=== PATIENT | male | born 1960 | race Two or more races ===

== ENCOUNTER 2021-09-02 17:25 | Inpatient (IN) | payer OTHER ==
[~2021-09-02] VITALS: Ht 182.9 cm; Wt 79.4 kg
--- NOTE | 2021-09-02 19:30 | NUR ---
[id number] FOR DIARRHEA, PT'S BEEN DRINKING ALCOHOL LAST NIGHT PER EMS. - NASUEA/VOMITTING PRESENT. BREATHING IS EVEN AND UNLABORED AND ALL V/S STABLE.
--- NOTE | 2021-09-02 21:11 | NUR ---
KEVEN GOMEZ AT PT'S BEDSIDE
[2021-09-02 22:24] LABS: BASOPHILS % (AUTO) 0.2 % (0.0-2.0); EOSINOPHILS % (AUTO) 0.1 % (0.0-6.0); HEMATOCRIT 43 % (39-51); HEMOGLOBIN 14.7 g/dL (13.5-17.5); LYMPHOCYTES # (AUTO) 0.6 K/uL (0.8-4.8); LYMPHOCYTES % (AUTO) 7.9 % (20.0-44.0); MEAN CORPUSCULAR HGB CONC 34 g/dl (31.0-36.0); MEAN CORPUSCULAR VOLUME 96 fL (80-96); MONOCYTES # (AUTO) 1.5 K/uL (0.1-1.30); MONOCYTES % (AUTO) 18.8 % (2.0-12.0); NEUTROPHILS # (AUTO) 5.9 K/uL (1.8-8.9); PLATELET COUNT (AUTO) 211 K/uL (150-450); RED BLOOD CELL COUNT(AUTO) 4.47 MIL/uL (4.5-6.0)
[2021-09-02 22:49] LABS: ALBUMIN 2.7 g/dL (3.4-5.0); CALCIUM, SERUM 8.8 mg/dL (8.5-10.1); CREATININE 1.3 mg/dL (0.6-1.3); TOTAL PROTEIN, SERUM 6.6 g/dL (6.4-8.2)
[2021-09-02 22:54] LABS: POTASSIUM 2.8 mmol/L (3.5-5.1)
--- NOTE | 2021-09-02 22:54 | NUR ---
K - 2.8; DR. CATHIE WELLER NOTIFIED
[2021-09-02] MEDS ORDERED: ONDANSETRON HCL/PF 4 MG/2 ML VIAL ONE (23:28)
[2021-09-02] MEDS ORDERED: HYDROMORPHONE 1 MG/1 ML DISP.SYRIN ONE (23:29)
[2021-09-02] MEDS ORDERED: VANCOMYCIN 1 GM VIAL ONE (23:29)
[2021-09-02] MEDS ORDERED: FLUCONAZOLE (100 MG) 100 MG TABLET ONE (23:29)
[2021-09-02] MEDS ORDERED: IV NS 0.9% 1,000 ML BAG IV ONE (23:30)
[2021-09-02] MEDS ORDERED: IV PREMIX D5 1/2NS + KCL 1,000 ML IV ONE (23:30)
[2021-09-02] MEDS ORDERED: POTASSIUM CL. PREMIX PERIPHER. 100 ML ONE (23:30)
[2021-09-02] MEDS ORDERED: VANCOMYCIN 1 GM in IV D5W 250 ML IV ONE (23:30)
[2021-09-02] MEDS ORDERED: HYDROMORPHONE 1 MG/1 ML DISP.SYRIN IV ONE (23:30)
[2021-09-02] MEDS ORDERED: FLUCONAZOLE (100 MG) 100 MG TABLET PO ONE (23:30)
[2021-09-02] MEDS ORDERED: ONDANSETRON HCL/PF - ER 4 MG/2 ML VIAL IV ONE (23:30)
--- NOTE | 2021-09-03 00:30 | NUR ---
PATRICIA BARTH SPOKE WITH MERCEDES PROJECT CONSTRUCTION MANAGER AND DR. SAAVEDRA. ORDERED US. AND WILL CONTACT ONCE RESULT RECEIVED.
--- NOTE | 2021-09-03 06:57 | NUR ---
CALLED BACK DR. SMALLWOOD BUT NO ANSWER PER ER MD. CALLED STAVE GRADER TO ASK FOR ONCOMING MD.
--- NOTE | 2021-09-03 07:14 | NUR ---
SPOKE WITH JAMIA MULTIPLE CUT OFF SAW OPERATOR REGARDING ULTRASOUND RESULT. RESULT WILL BE RELAYED BY MULTIPLE CUT OFF SAW OPERATOR AND WILL CALL BACK FOR TRANSFER.
[2021-09-03 08:17] LABS: BAND % (MANUAL) 2 % (0.0-5.0); EOSINOPHILS % (MANUAL) 1 % (0-4); LYMPHOCYTES % (MANUAL) 12 % (16-48); MONOCYTES % (MANUAL) 14 % (0-11.0); NEUTROPHILS % (MANUAL) 71 (42-76)
--- NOTE | 2021-09-03 08:29 | NUR ---
PER GABRIELA ADMITTING PATIENT IS STAYING HERE BEC NO BEDS AVAILABLE IN [facility]
--- NOTE | 2021-09-03 10:32 | NUR ---
CALLED NURSING SUP REGARDING PT BED
[2021-09-03] MEDS ORDERED: Z GUARD REMEDY 4 OZ OINT TP PRN (11:00)
[2021-09-03] MEDS ORDERED: ONDANSETRON HCL/PF 4 MG/2 ML VIAL IVP PRN (11:00)
[2021-09-03] MEDS: PANTOPRAZOLE 40 MG VIAL IV SCH (12:00)
[2021-09-03] MEDS ORDERED: PANTOPRAZOLE 40 MG VIAL ONE (12:23)
[2021-09-03] MEDS: IV NS 0.9% 1,000 ML IV PRN ×2 (12:26→23:40)
[2021-09-03] MEDS: Thiamine 100 MG in IV D5W 50 ML IV SCH (13:00)
[2021-09-03] MEDS ORDERED: ENOXAPARIN SODIUM 40 MG/0.4 ML DISP.SYRIN SQ ONE (13:06)
[2021-09-03] MEDS: ENOXAPARIN SODIUM 40 MG/0.4 ML DISP.SYRIN SQ SCH (13:07)
[2021-09-03 13:36] LABS: CALCIUM, SERUM 8.3 mg/dL (8.5-10.1)
[2021-09-03 13:41] LABS: POTASSIUM 2.8 mmol/L (3.5-5.1)
--- NOTE | 2021-09-03 15:58 | NUR ---
covid antigen swab done and sent to the lab
[2021-09-03] MEDS ORDERED: POTASSIUM CL. PREMIX PERIPHER. 50 ML ONE ×3 (16:04→18:47)
[2021-09-03] MEDS: POTASSIUM CL. PREMIX PERIPHER. 50 ML IV SCH ×6 (16:05→23:34)
--- NOTE | 2021-09-03 18:45 | NUR ---
ROOM 320-2
[2021-09-03 18:58] LABS: CALCIUM, SERUM 8.1 mg/dL (8.5-10.1)
[2021-09-03 19:02] LABS: POTASSIUM 2.8 mmol/L (3.5-5.1)
--- NOTE | 2021-09-03 19:25 | NUR ---
REPORT GIVEN TO NURSE ELIZABETH FOR YAA
--- NOTE | 2021-09-03 19:38 | NUR ---
THE PATIENT IS TRANSFERED TO ROOM 320 IN STABLE CONDITION AND PER POLICY.
[2021-09-03 20:00] VITALS: BP 139/86
[2021-09-03 20:30] VITALS: BP 139/86
--- NOTE | 2021-09-03 20:30 | NUR ---
MS PRESS TENDER NOTES: RECEIVED PATIENT FORM ER VIA [place], PLACE AT RM 320, NO COMPLAIN OF PAIN AND DISCOMFORT AT THIS TIME, ON ROOM AIR , NO SOB WAS OBSERVED, PATIENT IS A/O X4 CUBAN SPEAKING, HOMELESS, ABLE TO EXPRESS NEEDS, WITH IV LINE AT RIGHT HAND #20 WITH ONGOING 0.9NSS@150ML PER HOUR INFUSING WELL, SKIN ASSESSMENT DONE AND RECORDED, V/S REMAINS STABLE, INVENTORY DONE , PATIENT REMAINS NPO, KEPT CLEAN AND DRY ALL NEEDS MET, WILL CONTINUE TO MONITOR,
[2021-09-04 06:32] LABS: BASOPHILS % (AUTO) 0.1 % (0.0-2.0); EOSINOPHILS % (AUTO) 0.7 % (0.0-6.0); HEMATOCRIT 40 % (39-51); HEMOGLOBIN 13.6 g/dL (13.5-17.5); LYMPHOCYTES # (AUTO) 0.7 K/uL (0.8-4.8); LYMPHOCYTES % (AUTO) 9.7 % (20.0-44.0); MEAN CORPUSCULAR HGB CONC 34 g/dl (31.0-36.0); MEAN CORPUSCULAR VOLUME 98 fL (80-96); MONOCYTES # (AUTO) 1.2 K/uL (0.1-1.30); MONOCYTES % (AUTO) 17.3 % (2.0-12.0); NEUTROPHILS # (AUTO) 5.1 K/uL (1.8-8.9); NEUTROPHILS % (AUTO) 72.2 % (43.0-81.0); PLATELET COUNT (AUTO) 207 K/uL (150-450); RED BLOOD CELL COUNT(AUTO) 4.08 MIL/uL (4.5-6.0); WHITE BLOOD COUNT (AUTO) 7.1 K/uL (4.3-11.0)
--- NOTE | 2021-09-04 07:20 | NUR ---
MS RN OPENING NOTES RECEIVED PATIENT ON BED AWAKE ALERT AND ORIENTED X 4. ON ROOM AIR WITH EQUAL AND UNLABORED BREATHING, NO SOB NOTED. NO SIGNS AND SYMPTOMS OR COMPLAINTS OF PAIN OR DISCOMFORT AT THIS TIME. WITH RIGHT HAND IV ACCESS G20 WITH IVF NS RUNNING AT 150ML/HR. SAFETY MEASURES IN PLACE. CALL LIGHT WITHIN REACH. BED ON LOWEST, LOCKED POSITION, SIDE RAILS UP X2. WILL CONTINUE TO MONITOR PATIENT.
--- NOTE | 2021-09-04 07:50 | NUR ---
RN CLOSING NOTES: PATIENT SLEEP IN ED COMFORTABLY, BED IN LOW POSITION, CALLLIGHTS WITHIN REACH, NO COMPLAIN OF PAIN AND DISCOMFORT AT THIS TIME, WITH IV LINE AT RIGHT WRIST #20 WITH ONGOING 0.9NSS@150 ML PER HOUR INFUSING WELL, PATIENT ON NPO, KEPT CLEAN AND DRY, ALL NEEDS MET ENDORSE TO INCOMING SHIFT.
[2021-09-04 07:56] LABS: CALCIUM, SERUM 9.6 mg/dL (8.5-10.1); CREATININE 0.8 mg/dL (0.6-1.3); MAGNESIUM 2.1 mg/dL (1.8-2.4); PHOSPHORUS 1.5 mg/dL (2.5-4.9)
[2021-09-04 08:00] VITALS: BP 149/88
[2021-09-04 08:19] LABS: POTASSIUM 2.8 mmol/L (3.5-5.1)
--- NOTE | 2021-09-04 09:00 | NUR ---
MS RN NOTE PATIENT SEEN BY DR. EARLY. WILL CONTINUE TO MONITOR PATIENT.
[2021-09-04] MEDS: PANTOPRAZOLE 40 MG VIAL IV SCH (09:26)
[2021-09-04] MEDS ORDERED: POTASSIUM CHLORIDE 20 MEQ POWDER PACKET PO ONE (09:30)
[2021-09-04] MEDS ORDERED: NEUTRA PHOS 1 POWD.PACKET PO ONE (09:30)
[2021-09-04] MEDS: IV NS 0.9% 1,000 ML IV PRN ×2 (09:34→18:27)
[2021-09-04] MEDS: ENOXAPARIN SODIUM 40 MG/0.4 ML DISP.SYRIN SQ SCH (09:37)
[2021-09-04] MEDS: POTASSIUM CL. PREMIX PERIPHER. 50 ML IV SCH ×4 (10:03→13:54)
[2021-09-04] MEDS: Thiamine 100 MG in IV D5W 50 ML IV SCH (15:04)
[2021-09-04 16:00] VITALS: BP 146/92
--- NOTE | 2021-09-04 19:26 | NUR ---
MS RN CLOSING NOTES PATIENT ON BED AWAKE ALERT AND ORIENTED X 4. ON ROOM AIR WITH EQUAL AND UNLABORED BREATHING, NO SOB NOTED. NO SIGNS AND SYMPTOMS OR COMPLAINTS OF PAIN OR DISCOMFORT AT THIS TIME. WITH RIGHT HAND IV ACCESS G20 WITH IVF NS RUNNING AT 150ML/HR. SAFETY MEASURES IN PLACE. CALL LIGHT WITHIN REACH. BED ON LOWEST, LOCKED POSITION, SIDE RAILS UP X2. WILL ENDORSE PATIENT FOR CONTINUITY OF CARE.
--- NOTE | 2021-09-04 19:45 | NUR ---
MS RN OPENING NOTES RECEIVED PATIENT LAYING AWAKE IN BED. A/OX4. PATIENT WITH REGULAR AND UNLABORED BREATHING ON ROOM AIR TOLERATED WELL. NO SIGNS AND SYMPTOMS OF DISTRESS NOTED AT THIS TIME. NO COMPLAINS OF PAIN OR DISCOMFORT AT THIS TIME. IV ACCESS R HAND G #20 SL. IV ACCESS PATENT AND INTACT. SAFETY PRECAUTIONS ENFORCED WITH BED LOCKED AND AT LOWEST POSITION. SIDERAILS UP X2. CALL LIGHT WITHIN REACH AT ALL TIMES. WILL CONTINUE TO MONITOR PATIENT.
[2021-09-04 20:00] VITALS: BP 142/87
--- NOTE | 2021-09-05 07:30 | NUR ---
RN OPENING NOTES RECEIVED PATIENT LAYING AWAKE IN BED. A/OX4. PATIENT WITH REGULAR AND UNLABORED BREATHING ON ROOM AIR TOLERATED WELL. NO SIGNS AND SYMPTOMS OF DISTRESS NOTED AT THIS TIME. NO COMPLAINS OF PAIN OR DISCOMFORT AT THIS TIME. IV ACCESS R HAND G #20 SL. IV ACCESS PATENT AND INTACT. PATIENT HAD MULTIPLE BOWEL MOVEMENTS. SAFETY PRECAUTIONS ENFORCED WITH BED LOCKED AND AT LOWEST POSITION. SIDERAILS UP X2. CALL LIGHT WITHIN REACH AT ALL TIMES. WILL CONTINUE TO MONITOR PATIENT.
[2021-09-05 07:54] LABS: CALCIUM, SERUM 7.9 mg/dL (8.5-10.1); CREATININE 0.9 mg/dL (0.6-1.3)
--- NOTE | 2021-09-05 08:07 | NUR ---
MS RN CLOSING NOTES RECEIVED PATIENT LAYING AWAKE IN BED. A/OX4. PATIENT WITH REGULAR AND UNLABORED BREATHING ON ROOM AIR TOLERATED WELL. NO SIGNS AND SYMPTOMS OF DISTRESS NOTED AT THIS TIME. NO COMPLAINS OF PAIN OR DISCOMFORT AT THIS TIME. IV ACCESS R HAND G #20 SL. IV ACCESS PATENT AND INTACT. SAFETY PRECAUTIONS ENFORCED WITH BED LOCKED AND AT LOWEST POSITION. SIDERAILS UP X2. CALL LIGHT WITHIN REACH AT ALL TIMES. WILL ENDORSE CONTINUITY OF CARE TO DAY SHIFT NURSE.
[2021-09-05 08:08] LABS: POTASSIUM 2.8 mmol/L (3.5-5.1)
[2021-09-05 08:39] VITALS: BP 150/91
[2021-09-05] MEDS: PANTOPRAZOLE 40 MG VIAL IV SCH (09:08)
[2021-09-05] MEDS: ENOXAPARIN SODIUM 40 MG/0.4 ML DISP.SYRIN SQ SCH (09:09)
[2021-09-05] MEDS: IV NS 0.9% 1,000 ML IV PRN (10:18)
--- NOTE | 2021-09-05 10:21 | NUR ---
WOUND CARE CONSULT: PT PRESENTS WITH RT FOOT DISCOLORATION AND SEVERE REDNESS/RASH TO GROIN FOLDS, PERINEUM, BUTTOCKS AND THIGHS, PRESENT ON ADMISSION. RECOMMENDATIONS MADE FOR SKIN PROTECTION AND CARE. DISCUSSED WITH NURSING STAFF. PT TO BE PLACED ON VALARIE ISOFLEX LOW AIRLOSS BED. PT IS INCONTINENT OF LOOSE STOOL. MD/DNP IN AGREEMENT WITH PLAN OF CARE.
[2021-09-05] MEDS ORDERED: POTASSIUM CHLORIDE 20 MEQ POWDER PACKET PO ONE ×2 (10:30→14:00)
[2021-09-05] MEDS: POTASSIUM CL. PREMIX PERIPHER. 50 ML IV SCH ×3 (11:33→13:36)
--- NOTE | 2021-09-05 13:11 | NUR ---
"SS Consult: SS consult for homelessness and ETOH. Pt. Is a 61-year-old male. Pt. demonstrates adequate insight to the reason for hospitalization. Per pt., he was brought to hospital by ambulance due to heavy drinking. Pt. was oriented x3, alert, and cooperative. During interview, pt. was capable of following directions, made appropriate eye-contact, and appeared unkempt. Pt.s speech was at a normal rate. Pt.s mood was elevated. SW explored pt.s hx of mental health and substance abuse. Per pt., he has been drinking for two months straight. Last Sunday was the last day he had stopped drinking [09/02]. Pt. reported no hx of mental health, suicidal or homicidal ideation. Pt. denies auditory hallucinations, visual hallucinations, paranoia, or delusions. SW explored pt.s living situation. Per pt., he is currently homeless. He got kicked out of his wifes house two months ago and that was when the drinking started. Pt. stated that he does not have a problem and does not need resources for drinking. Pt. stated that he does not know where he is going to go once discharged. Per pt., he is still deciding on where he is going to go. SW provided pt. with care home resources. Pt. signed homeless waiver and is placed in chart. Plan: SW provided available homeless resources and pt. accepted. Pt. rejected addiction resources at this time. Resources Provided: Winter Shelters: SPA 2 | [facility] Address: Confidential (call for location ) Population Served: [place] # of Beds: 57 SPA 4 | [facility] Provider: Home at Last Address: [address] [place] [address], [address] # of Beds: 49 Population Served: [facility] 6 | [facility] Provider: Home at Last Address: [address] [place] [address], [address] # of Beds: 49 Population Served: Ryand Gen Shetty [facility] Provider: Dilan Shetty MEArmida Address: [address] [place] [address] # of Beds: 20 Population Served: Women [facility] Facility Provider: Home at Last Address: [address] [facility] [address] # of Beds: 30 Population Served: Women SPA 8 | [facility] Provider: [facility] Address: [address] [facility] [address] # of Beds: 65 Population Served: [facility] Year-round shelters: [facility] [place] [address] [place] [address] ; [facility] [place] [address] [place] [address]; [place] [facility] [id number] [facility] [address] Winter Shelters: Larrytutu Muhammad [place] Provider: Volunteers michelle [place] Address: [address], [address] # of Beds: 47 Population Served: [facility] 6 | [facility] Norma Tejada [place] Provider: Home at Last Address: [address], [address] # of Beds: 66 Population Served: [facility] [place] Provider: First to Serve Address: [address] [facility], [address] # of Beds: 56 Population Served: [facility] [place] Provider: SS/[facility]. [facility] Address: [address] [facility], [address] # of Beds: 49 Population Served: [facility] 8 | [facility] Provider: First to Serve Address: [address], [address] # of Beds: 37 Population Served: [facility] Hygiene: [facility]: [address] [address] ; [facility] [address] [facility] [address] [place] ; [facility] [address] . Food Resources: [place] [facility] at [facility] [address]. [place]; Meet Each Need with Dignity ([facility]) [address] [facility] [facility] preble; [facility] [address] [facility]; [facility] [address] [place]. Mental Health resources provided: [facility] [address] [place], [place] [address] ; [place] [facility] [address] [facility] [address], [place], [place] [phone] ; [facility] [address] [address], [place] [phone] ; [facility] [address] [place], [place] [address] Healthcare Clinics: [facility] [address] [facility], [address] [place]. [place] ; [facility] [address] [facility] [address] [place] [address]; [facility] Health Trade [address] [facility]. [place] [phone] Counseling--Outpatient [facility] [address] [facility], [address] [place], [place] [address] (Specializes in in-depth psychotherapy for emotional distress: anxiety, depression, interpersonal conflicts, life transitions, childhood abuse) [facility] [address] [place], [place] [phone] (Assist with solving problem marital difficulties, separation & divorce, aging parents, & grief, chronic & terminal illness) [facility] [address] [place] [address] (Deal with loss & grief, anxiety, marital difficulties) Homebound/Mental Health Services [address] [facility], [address] [place], [place] [address] (Provide in-home mental services to people who are incapable of leaving their homes) [facility] for Needs of the Elderly Senior Service/Resource Center [address] [place] [address] [facility] [address] [place] [address] PSYCHIATRIC OUTPATIENT SERVICES [facility] Partial Hospitalization and Intensive Outpatient Program (Managed Care and Rodriguez Only)[address] [facility] [phone] [facility] Partial Hospitalization and Outpatient [id number] [place], [place] [phone] [facility] Mental Health Trade [id number] [facility]. [address] [place], [place] [phone] [facility] Partial Hospitalization and Outpatient [id number] [facility] Care[facility], [phone] Substance Abuse resources provided included: [facility] Substance Abuse Self-Helpline ([facility]) ; [facility]LP [address] [facility]. [place] [address] ; [facility] [address] [facility] [address] ; [facility] [address] [facility] [address] ; [facility] [address] [facility] [phone] ; [facility] Treatment [facility] 4940 [facility] [address] ; [facility] [place] [address] [facility] [phone] ; [facility] Substance Abuse Helpline([facility])-[facility] ; [facility] ; [facility]; [facility] [place]; [facility] [place]; [facility] Peewee Naresh; [facility]; [place]; [facility] [place]; [facility], [facility]. Luiz Jc; Alcoholics Anonymous -SFV; Alissa ; Marijuana Anonymous -SFV; Narcotics Anonymous www.na.org;"
[2021-09-05] MEDS: THIAMINE HCL 100 MG TABLET PO SCH (13:34)
[2021-09-05 16:04] VITALS: BP 139/75
[2021-09-05] MEDS: CLOTRIMAZOLE/BETAMETASONE DIPROPIONATE 15 GM TUBE TP SCH (17:36)
--- NOTE | 2021-09-05 19:00 | NUR ---
RN CLOSING NOTES PATIENT LAYING AWAKE IN BED. A/OX4. PATIENT WITH REGULAR AND UNLABORED BREATHING ON ROOM AIR TOLERATED WELL. NO SIGNS AND SYMPTOMS OF DISTRESS NOTED AT THIS TIME. NO COMPLAINS OF PAIN OR DISCOMFORT AT THIS TIME. IV ACCESS R HAND G #20 SL. IV ACCESS PATENT AND INTACT.ALL DUE MEDS GIVEN ORDERED. POTASSIUM IV REPLACED. SAFETY PRECAUTIONS ENFORCED WITH BED LOCKED AND AT LOWEST POSITION. SIDERAILS UP X2. CALL LIGHT WITHIN REACH AT ALL TIMES. WILL ENDORSE FOR YAA.
--- NOTE | 2021-09-05 19:51 | NUR ---
RN OPENING NOTES RECEIVED PT IN BED, AWAKE. AOx4, ABLE TO MAKE NEEDS KNOWN. ON RA AND TOLERATING WELL. NO SOB NOTED. NO S/SX OF RESPIRATORY DISTRESS NOTED. IV ACCESS IN R HAND #20. IV IS INTACT, PATENT, AND FLUSHING WELL. SAFETY PRECAUTIONS IN PLACE: BED IN LOWEST, LOCKED POSITION, BRAKES ON, AND SIDERAILS UPx2. TABLE AND CALL LIGHT WITHIN REACH. WILL CONTINUE TO MONITOR.
--- NOTE | 2021-09-06 07:29 | NUR ---
RN CLOSING NOTES PT IN BED, AWAKE. AOx3-4, ABLE TO MAKE NEEDS KNOWN. ON RA AND TOLERATING WELL. NO SOB NOTED. NO S/SX OF RESPIRATORY DISTRESS NOTED. IV ACCESS IN R HAND #20. IV IS INTACT, PATENT, AND FLUSHING WELL. ALL NEEDS MET. PT KEPT CLEAN AND DRY. SAFETY PRECAUTIONS IN PLACE: BED IN LOWEST, LOCKED POSITION, BRAKES ON, AND SIDERAILS UPx2. TABLE AND CALL LIGHT WITHIN REACH. WILL ENDORSE TO ONCOMING SHIFT FOR YAA.
[2021-09-06 08:00] VITALS: BP 137/86
--- NOTE | 2021-09-06 08:00 | NUR ---
m/s spot billing clerk: initial assessment received pt in bed awake, a/ox2 with confusion and disorientation to place and situation. reality orientation provided prn. gait unsteady. instructed to call for assistance. bed alarm on. will continue to monitor.
[2021-09-06 08:13] LABS: CALCIUM, SERUM 8.5 mg/dL (8.5-10.1); CREATININE 0.9 mg/dL (0.6-1.3); POTASSIUM 3.1 mmol/L (3.5-5.1)
[2021-09-06] MEDS: ENOXAPARIN SODIUM 40 MG/0.4 ML DISP.SYRIN SQ SCH (08:41)
[2021-09-06] MEDS: PANTOPRAZOLE 40 MG TABLET.DR PO SCH (08:41)
[2021-09-06] MEDS: CLOTRIMAZOLE/BETAMETASONE DIPROPIONATE 15 GM TUBE TP SCH ×2 (08:45→17:00)
[2021-09-06] MEDS ORDERED: POTASSIUM CL. PREMIX PERIPHER. 50 ML IV SCH (10:00)
[2021-09-06] MEDS ORDERED: POTASSIUM CHLORIDE 20 MEQ TAB.PRT.SR PO ONE (11:30)
[2021-09-06] MEDS: THIAMINE HCL 100 MG TABLET PO SCH (12:07)
[2021-09-06 16:00] VITALS: BP 150/100
--- NOTE | 2021-09-06 17:00 | NUR ---
m/s household coordinator: notes dinner served. no distress noted. hob elevated. instructed to call for assistance. will continue to monitor.
--- NOTE | 2021-09-06 19:00 | NUR ---
m/s grooving lathe tender: notes report given to orquidea (rn) for continuity of care.
--- NOTE | 2021-09-06 19:50 | NUR ---
RN OPENING NOTES RECEIVED PT IN BED, ASLEEP, AWAKENS TO VERBAL STIMULI. AOx2-3, ABLE TO MAKE NEEDS KNOWN. ON RA AND TOLERATING WELL. NO SOB NOTED. NO S/SX OF RESPIRATORY DISTRESS NOTED. IV ACCESS IN R HAND #20. IV IS INTACT, PATENT, AND FLUSHING WELL. SAFETY PRECAUTIONS IN PLACE: BED IN LOWEST, LOCKED POSITION, BRAKES ON, AND SIDERAILS UPx2. TABLE AND CALL LIGHT WITHIN REACH. WILL CONTINUE TO MONITOR.
[2021-09-06 21:12] VITALS: BP 137/89
[2021-09-06] MEDS: LORAZEPAM INJ 2 MG/ML VIAL IV PRN (21:34)
--- NOTE | 2021-09-06 21:34 | NUR ---
ADMINISTERED ATIVAN FOR WITHDRAWALS. VS WNL. WILL CONTINUE TO MONITOR.
[2021-09-06] MEDS: IV LR 1000 ML 1,000 ML IV SCH (22:40)
--- NOTE | 2021-09-06 23:55 | NUR ---
PATIENT REFUSES TO STAY IN BED. TRYING TO TURN ON BED ALARM BUT PATIENT BECOMES AGITATED. CHARGE NURSE AWARE. ALSO REQUESTED SITTER FOR PATIENT.
[2021-09-07] MEDS: LORAZEPAM INJ 2 MG/ML VIAL IV PRN ×3 (01:46→20:02)
--- NOTE | 2021-09-07 01:46 | NUR ---
ADMINISTERED ATIVAN FOR WITHDRAWALS. VS WNL. WILL CONTINUE TO MONITOR.
[2021-09-07] MEDS ORDERED: CHLORDIAZEPOXIDE HCL 25 MG CAPSULE ONE (04:11)
--- NOTE | 2021-09-07 04:21 | NUR ---
PATIENT HAVING WITHDRAWAL SYMPTOMS OF TREMORS, AGITATION, AND CONFUSION. CHARGE NURSE AWARE. CONTACTED DR. VIZCAINO AND DOCTOR ORDERED LIBRIUM 50 MG PO ONCE. WILL CONTINUE TO MONITOR.
[2021-09-07] MEDS ORDERED: CHLORDIAZEPOXIDE HCL 25 MG CAPSULE PO ONE (04:30)
--- NOTE | 2021-09-07 06:07 | NUR ---
ADMINISTERED ATIVAN FOR WITHDRAWALS. VS WNL. WILL CONTINUE TO MONITOR.
--- NOTE | 2021-09-07 07:07 | NUR ---
RN CLOSING NOTES RECEIVED PT IN BED, ASLEEP, AWAKENS TO VERBAL STIMULI. AOx2-3, WITH PERIODS OF CONFUSION. ON RA AND TOLERATING WELL. NO SOB NOTED. NO S/SX OF RESPIRATORY DISTRESS NOTED. IV ACCESS IN L HAND #20. IV IS INTACT, PATENT, AND FLUSHING WELL. ALL NEEDS MET. PT KEPT CLEAN AND DRY. TREATED WITHDRAWAL SYMTPOMS THROUGHOUT SHIFT. SAFETY PRECAUTIONS IN PLACE: BED IN LOWEST, LOCKED POSITION, BRAKES ON, AND SIDERAILS UPx2. TABLE AND CALL LIGHT WITHIN REACH. WILL ENDORSE TO ONCOMING SHIFT FOR YAA.
[2021-09-07 07:15] LABS: CALCIUM, SERUM 8.7 mg/dL (8.5-10.1); POTASSIUM 2.9 mmol/L (3.5-5.1)
[2021-09-07] MEDS: IV LR 1000 ML 1,000 ML IV SCH ×2 (08:09→18:14)
[2021-09-07 08:14] VITALS: BP 126/89
[2021-09-07] MEDS: PANTOPRAZOLE 40 MG TABLET.DR PO SCH (08:25)
[2021-09-07] MEDS: ENOXAPARIN SODIUM 40 MG/0.4 ML DISP.SYRIN SQ SCH (08:28)
[2021-09-07] MEDS: CLOTRIMAZOLE/BETAMETASONE DIPROPIONATE 15 GM TUBE TP SCH ×2 (08:31→16:11)
--- NOTE | 2021-09-07 09:21 | NUR ---
RN NOTES PATIENT SEEN BY PT TODAY BUT PATIENT IS SLEEPING AT THIS TIME; WILL COME BACK LATER FOR PT EXERCISES.
[2021-09-07] MEDS: POTASSIUM CHLORIDE 20 MEQ TAB.PRT.SR PO SCH ×3 (10:18→11:22)
--- NOTE | 2021-09-07 10:35 | NUR ---
RN NOTES PT AT BEDSIDE FOR EXERCISES
--- NOTE | 2021-09-07 12:00 | NUR ---
RN NOTES PATIENT NOTED W/ UNSTEADY GAIT; CHANGED LINEN IN BED AND ASSISTED W/ ADLS TOLERATED. NO SWALLOWING ISSUES NOTED AT THIS TIME. STILL NOTED W/ CONFUSION; [place], AWARE.
[2021-09-07] MEDS: THIAMINE HCL 100 MG TABLET PO SCH (12:07)
[2021-09-07] MEDS ORDERED: Potassium Chloride 40 MEQ in IV NS 0.9% 1,000 ML IV PRN (13:00)
[2021-09-07 16:00] VITALS: BP 114/75
--- NOTE | 2021-09-07 19:10 | NUR ---
MS RN NOTE: RECEIVED REPORT AT PATIENT'S BEDSIDE. PATIENT ASLEEP, EYES CLOSED, RR EVEN AND UNLABORED. EASILY AROUSED BY VOICE COMMAND, IN NAD AND VSS AT THIS TIME. BED IN LOW/LOCKED POSITION. SIDE RAILS UP X2. HOB IN SEMI-MANE'S POSITION. PATENT DEMONSTRATES ABILITY TO USE CALL LIGHT AND VERBALIZE NEEDS EFFECTIVELY. CALL LIGHT AND FREQUENTLY USED ITEMS WITHIN REACH.
--- NOTE | 2021-09-07 19:20 | NUR ---
RN NOTES PATIENT IN BED RESTING, ABLE TO BE AWAKENED. BREATHING EVEN AND UNLABORED, TOLERATING ROOM AIR. IV LINE INTACT AND PATENT; ASSISTED W/ ADLS NEEDED. ABLE TO UPGRADE DIET, TOLERATED BY PATIENT. SAFETY MEASURES MAINTAINED. ENDORSED TO CALL CENTER RECEPTIONIST RN FOR YAA.
[2021-09-07 20:00] VITALS: BP 119/67
--- NOTE | 2021-09-07 20:02 | NUR ---
RN NOTE: NOTIFIED PHARMACY AND CHARGE NURSE OF SCANNING ISSUES WITH ATIVAN IVP. TICKETING CLERK WITNESSED SCANNING ISSUE. ATIVAN 1MG ADMINISTERED TO PATIENT IVP FOR RESTLESSNESS.
[2021-09-08] MEDS: IV LR 1000 ML 1,000 ML IV SCH ×2 (03:23→13:50)
[2021-09-08] MEDS: LORAZEPAM INJ 2 MG/ML VIAL IV PRN ×2 (03:23→23:00)
[2021-09-08] MEDS: PANTOPRAZOLE 40 MG TABLET.DR PO SCH (06:37)
[2021-09-08 07:01] LABS: CALCIUM, SERUM 8.1 mg/dL (8.5-10.1); CREATININE 0.9 mg/dL (0.6-1.3); MAGNESIUM 1.8 mg/dL (1.8-2.4); POTASSIUM 3.2 mmol/L (3.5-5.1)
--- NOTE | 2021-09-08 07:32 | NUR ---
MS RN OPENING NOTES RECEIVED Pt RESTING IN BED A/O x2-3. Pt IS ON ROOM AIR AT THIS TIME AND IT TOLERATING WELL. NO COMPLAINTS OF PAIN MADE AND NO SIGNS OF DISTRESS NOTICED. SAFETY MEASURES ARE IN PLACE: BED IS LOCKED AND IN LOWEST POSITION, SIDE RAILS UP x3, BED SIDE TABLE AND CALL LIGHT ARE WITHIN REACH. WILL CONTINUE TO MONITOR THROUGHOUT THE SHIFT.
[2021-09-08 08:00] VITALS: BP 102/62
[2021-09-08] MEDS: ENOXAPARIN SODIUM 40 MG/0.4 ML DISP.SYRIN SQ SCH (08:38)
[2021-09-08] MEDS: CLOTRIMAZOLE/BETAMETASONE DIPROPIONATE 15 GM TUBE TP SCH ×2 (08:39→16:05)
[2021-09-08] MEDS: POTASSIUM CHLORIDE 20 MEQ TAB.PRT.SR PO SCH ×2 (09:24→10:25)
[2021-09-08] MEDS: THIAMINE HCL 100 MG TABLET PO SCH (13:49)
[2021-09-08 16:00] VITALS: BP 139/86
--- NOTE | 2021-09-08 18:57 | NUR ---
MS RN CLOSING NOTES Pt IS RESTING IN BED. A/Ox3 AND IS ON ROOM AIR TOLERATING WELL. NO RESPIRATORY DISTRESS NOTED AND NO COMPLAINTS OF PAIN MADE. Pt HAS IV ON L HAND AND IS PATENT AND INTACT. SAFETY MEASURES ARE IN PLACE: BED IS LOCKED AND IN LOWEST POSITION. SIDE RAILS UPx3. BED SIDE TABLE AND CALL LIGHT ARE WITHIN REACH. WILL ENDORSE TO ONCOMING SHIFT.
--- NOTE | 2021-09-08 19:00 | NUR ---
MS RN OPENING NOTE: RECEIVED REPORT AT PATIENT'S BEDSIDE. PATIENT LAYING IN BED WATCHING TV. COMMUNICATIVE. ALERT AND ORIENTED TO PERSON, PLACE AND TIME. NAD AND VSS AT THIS TIME. PATIENT EATING SOFT FOODS AND DRINKING PO AD [place] INDEPENDENTLY WITHOUT COMPLICATION. OBSERVED REPOSITIONING IN BED INDEPENDENTLY. BED IN LOW/LOCKED POSITION. SIDE RAILS UP X2. PATIENT DEMONSTRATES ABILITY TO USE CALL LIGHT AND VERBALIZE NEEDS EFFECTIVELY. CALL LIGHT AND FREQUENTLY USED ITEMS WITHIN REACH.
[2021-09-08 20:00] VITALS: BP 130/74
--- NOTE | 2021-09-08 23:11 | NUR ---
MS RN NOTE: L HAND NOTED TO BE SWOLLEN. CATHETER INSERTION SITE LEAKING WITH FLUID. IV INFILTRATED. LINE D/C'D CATHETER TIP INTACT. ARM ELEVATED WITH PILLOWS.
--- NOTE | 2021-09-09 01:30 | NUR ---
RN NOTE: IV TO R FA 22 GAUGE STARTED ON 2ND ATTEMPT
[2021-09-09] MEDS: LORAZEPAM INJ 2 MG/ML VIAL IV PRN (03:15)
--- NOTE | 2021-09-09 03:15 | NUR ---
MS RN NOTE: PATIENT C/O ANXIETY. ADMINISTERED ATIVAN 1MG IVP. SHORTLY AFTER ADMINISTRATION PATIENT NOTIFIED THIS NURSE THE IV CAME OUT TO R FA. CATHETER TIP NOTED TO BE INTACT.
--- NOTE | 2021-09-09 03:42 | NUR ---
MS RN NOTE: NOTIFIED HOSPITALIST OF INABILITY TO START NEW IV AFTER 3 UNSUCCESSFUL ATTEMPTS AND PATIENT'S PO STATUS (TOLERATING ORAL FOODS AND NUTRITION WITHOUT ISSUE). MD RESPONSE: "CONTINUE TO ENCOURAGE PO HYDRATION." NOTIFIED PATIENT. PATIENT VERBALIZES UNDERSTANDING.
--- NOTE | 2021-09-09 05:42 | NUR ---
MS RN CLOSING NOTE: PATIENT SLEPT WELL THROUGHOUT MAJORITY OF NIGHT. EASILY AROUSED TO VOICE COMMAND. ALERT AND ORIENTED X3. NAD AND VSS AT THIS TIME. PATIENT EATING SOFT FOODS AND DRINKING PO AD [place] INDEPENDENTLY WITHOUT COMPLICATION. OBSERVED REPOSITIONING IN BED INDEPENDENTLY. BED IN LOW/LOCKED POSITION. NO IV AT THIS TIME. MD AWARE. SIDE RAILS UP X2. PATIENT DEMONSTRATES ABILITY TO USE CALL LIGHT AND VERBALIZE NEEDS EFFECTIVELY. CALL LIGHT AND FREQUENTLY USED ITEMS WITHIN REACH.
--- NOTE | 2021-09-09 07:53 | NUR ---
RN OPENING NOTES PATIENT AWAKE IN BED RESTING, A/O X3. NO S/S OF PAIN NOTED AT THIS TIME. ON ROOM AIR, NO DISTRESS OR SHORTNESS OF BREATH NOTED. NO IV ACCESS AT THE MOMENT. FALL AND SAFETY MEASURES IN PLACE, BED ALARM ON, BED IN LOW AND LOCK POSITION, CALL LIGHT AND TABLE WITHIN EASY REACH, SIDE RAILS UP X2. WILL CONTINUE TO MONITOR.
[2021-09-09 08:00] VITALS: BP 136/76
[2021-09-09] MEDS: THIAMINE HCL 100 MG TABLET PO SCH (09:30)
[2021-09-09] MEDS: CLOTRIMAZOLE/BETAMETASONE DIPROPIONATE 15 GM TUBE TP SCH ×2 (09:30→16:33)
[2021-09-09] MEDS: ENOXAPARIN SODIUM 40 MG/0.4 ML DISP.SYRIN SQ SCH (09:32)
[2021-09-09] MEDS: PANTOPRAZOLE 40 MG TABLET.DR PO SCH (09:34)
[2021-09-09 10:47] LABS: POTASSIUM 3.6 mmol/L (3.5-5.1)
[2021-09-09 16:00] VITALS: BP 139/78
--- NOTE | 2021-09-09 18:54 | NUR ---
RN CLOSING NOTES PATIENT AWAKE IN BED RESTING, A/O X3. NO S/S OF PAIN NOTED AT THIS TIME. ON ROOM AIR, NO DISTRESS OR SHORTNESS OF BREATH NOTED. NO IV ACCESS AT THE MOMENT. FALL AND SAFETY MEASURES IN PLACE, BED ALARM ON, BED IN LOW AND LOCK POSITION, CALL LIGHT AND TABLE WITHIN EASY REACH, SIDE RAILS UP X2. WILL ENDORSE TO STUDENT SUPPORT ADVISOR.
[2021-09-09 20:00] VITALS: BP 152/77
[2021-09-09] MEDS: IV LR 1000 ML 1,000 ML IV SCH (20:30)
--- NOTE | 2021-09-09 20:30 | NUR ---
MS RN OPENING NOTES: RECEIVED PATIENT AWAKE IN BED, BED IN LOW POSITION, CALL LIGHTS WITHIN REACH, NO COMPLAIN OF PAIN AND DISCOMFORT AT THIS TIME, PATIENT IS A/O X3 WITH EPISODE OF CONFUSION,, NO COMPLAIN OF PAIN AND DISCOMFORT AT THIS TIME, ON ROOM AIR SATURATING WELL, NO IV LINE PATIENT OFFERED TO RE INSERT PATIENT REFUSED, PATIENT KEPT CLEAN AND DRY, ALL NEEDS MET WILL CONTINUE TO MONTIOR.
[2021-09-10] MEDS: IV LR 1000 ML 1,000 ML IV SCH ×3 (05:59→06:30)
--- NOTE | 2021-09-10 07:10 | NUR ---
RN CLOSING NOTES: PATIENT SLEEP IN BED COMFORTABLY, AROUSABLE TO VERBAL STIMULI, ON ROOM AIR SATURATING WELL, NO COMPLAIN OF PAIN AND DISCOMFORT AT THIS TIME, PATIENT IS A/OX3 ABLE TO MAKE NEEDS KNOWN, PATIENT KEPT CLEAN AND DRY ALL NEEDS MET ENDORSE TO INCOMING SHIFT.
--- NOTE | 2021-09-10 07:51 | NUR ---
MS RN OPENING NOTES: RECEIVED Pt AWAKE IN BED. Pt IS A/Ox3 AT THIS TIME. Pt IS ON ROOM AIR AND TOLERATING WELL NO COMPLAINTS OF PAIN MADE AND NO SIGNS OF DISTRESS NOTED. Pt HAS AN IV ON R FA 20g THAT IS PATENT AND INTACT. SAFETY MEASURES ARE IN PLACE: BED IS LOCKED AND IN LOWEST POSITION. SIDE RAILS UP x2, BED SIDE TABLE AND CALL LIGHT ARE WITHIN REACH. WILL CONTINUE TO MONITOR THROUGHOUT THE SHIFT.
[2021-09-10 08:00] VITALS: BP 148/83
[2021-09-10] MEDS: ENOXAPARIN SODIUM 40 MG/0.4 ML DISP.SYRIN SQ SCH (09:00)
[2021-09-10] MEDS: CLOTRIMAZOLE/BETAMETASONE DIPROPIONATE 15 GM TUBE TP SCH ×2 (09:39→16:17)
--- NOTE | 2021-09-10 09:42 | NUR ---
MS RN NOTES: LOVENOX Pt's IV WAS PULLED OUT AND Pt's IV SITE WAS BLEEDING, LOVENOX NOT GIVEN.
[2021-09-10] MEDS: PANTOPRAZOLE 40 MG TABLET.DR PO SCH (10:50)
[2021-09-10] MEDS: THIAMINE HCL 100 MG TABLET PO SCH (13:15)
[2021-09-10 16:00] VITALS: BP 138/80
--- NOTE | 2021-09-10 18:31 | NUR ---
MS RN CLOSING NOTES: Pt IS RESTING IN BED COMFORTABLY, A/Ox3 AT THIS TIME. Pt IS ON ROOM AIR AND SATURATING WELL, NO COMPLAINTS OF PAIN MADE AND NO SIGNS OF DISCOMFORT AT THIS TIME, Pt IS ABLE TO MAKE NEEDS KNOWN. Pt HAS NO IV ACCESS AND MD IS AWARE. SAFETY MEASURES ARE IN PLACE: BED IS LOCKED AND IN LOWEST POSITION. SIDE RAILS UP x2. BED SIDE TABLE AND CALL LIGHT WITHIN REACH. WILL ENDORSE TO ONCOMING SHIFT.
--- NOTE | 2021-09-10 19:15 | NUR ---
MS/RN NOTES PT AWAKE, A/OX3, ABLE TO MAKE NEEDS KNOWN. HE DENIES ANY PAIN AT THIS TIME. RESPIRATIONS EVEN/UNLABORED. ON ROOM AIR. NO IV ACCESS, PER MD OK TO HAVE NO IV. PT IN NO ACUTE DISTRESS. SAFETY MEASURES IN PLACE, BED IN LOWEST LOCKED POSITION, S/R UPX2, CALL LIGHT WITHIN REACH. WILL CONT TO MONITOR.
[2021-09-10 20:00] VITALS: BP 147/71
--- NOTE | 2021-09-11 06:48 | NUR ---
MS/RN NOTE Pt resting in bed, easily arousable to stimuli. Denies any pain/discomfort. No respiratory distress. Pt slept well during the night without any distress. All needs attended to. Safety measures maintained.
--- NOTE | 2021-09-11 07:35 | NUR ---
MS RN OPENING NOTES: RECEIVED Pt AWAKE IN BED. Pt IS A/Ox3 AT THIS TIME. Pt IS ON ROOM AIR AND TOLERATING WELL NO COMPLAINTS OF PAIN MADE AT THIS TIME AND NO SIGNS OF DISTRESS NOTED. SAFETY MEASURES ARE IN PLACE: BED IS LOCKED AND IN LOWEST POSITION. SIDE RAILS UP x2, BED SIDE TABLE AND CALL LIGHT ARE WITHIN REACH. WILL CONTINUE TO MONITOR THROUGHOUT THE SHIFT.
[2021-09-11 07:51] LABS: CALCIUM, SERUM 7.8 mg/dL (8.5-10.1); CREATININE 0.8 mg/dL (0.6-1.3); MAGNESIUM 1.7 mg/dL (1.8-2.4)
[2021-09-11 08:00] VITALS: BP 127/93
[2021-09-11 08:21] LABS: BASOPHILS # (AUTO) 0.1 K/uL (0.0-0.2); BASOPHILS % (AUTO) 0.9 % (0.0-2.0); EOSINOPHILS % (AUTO) 0.9 % (0.0-6.0); HEMATOCRIT 39 % (39-51); HEMOGLOBIN 13.1 g/dL (13.5-17.5); LYMPHOCYTES # (AUTO) 1.3 K/uL (0.8-4.8); LYMPHOCYTES % (AUTO) 11.5 % (20.0-44.0); MEAN CORPUSCULAR HGB CONC 34 g/dl (31.0-36.0); MEAN CORPUSCULAR VOLUME 98 fL (80-96); MONOCYTES % (AUTO) 8.7 % (2.0-12.0); NEUTROPHILS # (AUTO) 8.6 K/uL (1.8-8.9); PLATELET COUNT (AUTO) 675 K/uL (150-450); RED BLOOD CELL COUNT(AUTO) 4.02 MIL/uL (4.5-6.0); WHITE BLOOD COUNT (AUTO) 11.1 K/uL (4.3-11.0)
[2021-09-11] MEDS ORDERED: Magnesium 1GM/D5W 100ML PREMIX 100 ML IV SCH (09:00)
[2021-09-11] MEDS: ENOXAPARIN SODIUM 40 MG/0.4 ML DISP.SYRIN SQ SCH (09:12)
[2021-09-11] MEDS: PANTOPRAZOLE 40 MG TABLET.DR PO SCH (09:12)
[2021-09-11] MEDS: POTASSIUM CHLORIDE 20 MEQ TAB.PRT.SR PO SCH ×3 (09:12→12:25)
[2021-09-11] MEDS: CLOTRIMAZOLE/BETAMETASONE DIPROPIONATE 15 GM TUBE TP SCH ×2 (09:13→17:10)
[2021-09-11] MEDS ORDERED: MAGNESIUM OXIDE 400 MG TABLET PO ONE (12:00)
[2021-09-11] MEDS ORDERED: POTASSIUM CHLORIDE 20 MEQ TAB.PRT.SR PO ONE ×2 (12:24→13:10)
[2021-09-11] MEDS: THIAMINE HCL 100 MG TABLET PO SCH (13:11)
[2021-09-11 15:50] VITALS: BP 134/82
--- NOTE | 2021-09-11 19:30 | NUR ---
MS RN NOTES RECEIVED ON BED A/O X3,HOMELESS,BREATHING REGULAR,NOT IN ANY FORM OF DISTRESS,CONTINENT ON B/B,NO IV ACCESS,MD AWARE,ASSIST WITH ADL'S,FALL PRECAUTION OBSERVED,BED ALARM,BED ON LOWEST POSITION AND LOCKED,CALL LIGHT IN REACH,NEEDS ANTICIPATED.
[2021-09-11 20:00] VITALS: BP 136/83
[2021-09-11 20:38] VITALS: BP 136/83
[2021-09-12 06:44] LABS: CALCIUM, SERUM 8.2 mg/dL (8.5-10.1); CREATININE 0.9 mg/dL (0.6-1.3); MAGNESIUM 1.7 mg/dL (1.8-2.4); POTASSIUM 3.7 mmol/L (3.5-5.1)
--- NOTE | 2021-09-12 06:44 | NUR ---
MS RN NOTES NO SIGNIFICANT CHANGE IN STATUS,EASILY GETS AGITATED,POSSIBLE D/C TO SNF,AWAITING PLACEMENT.CALL LIGHT IN REACH,NEEDS ATTENDED.
[2021-09-12 07:22] LABS: BASOPHILS # (AUTO) 0.2 K/uL (0.0-0.2); BASOPHILS % (AUTO) 2.3 % (0.0-2.0); EOSINOPHILS % (AUTO) 1.5 % (0.0-6.0); HEMATOCRIT 39 % (39-51); HEMOGLOBIN 13.2 g/dL (13.5-17.5); LYMPHOCYTES # (AUTO) 1.4 K/uL (0.8-4.8); LYMPHOCYTES % (AUTO) 14.8 % (20.0-44.0); MEAN CORPUSCULAR HGB CONC 34 g/dl (31.0-36.0); MEAN CORPUSCULAR VOLUME 98 fL (80-96); MONOCYTES % (AUTO) 10.8 % (2.0-12.0); NEUTROPHILS # (AUTO) 6.7 K/uL (1.8-8.9); NEUTROPHILS % (AUTO) 70.6 % (43.0-81.0); PLATELET COUNT (AUTO) 700 K/uL (150-450); RED BLOOD CELL COUNT(AUTO) 3.95 MIL/uL (4.5-6.0); WHITE BLOOD COUNT (AUTO) 9.5 K/uL (4.3-11.0)
--- NOTE | 2021-09-12 07:25 | NUR ---
MS RN OPENING NOTES: RECEIVED Pt AWAKE IN BED. Pt IS A/Ox3 AT THIS TIME. Pt IS ON ROOM AIR AND TOLERATING WELL NO COMPLAINTS OF PAIN MADE AND NO SIGNS OF DISTRESS NOTED. Pt HAS NO IV ACCESS AT THIS TIME. MD AWARE. SAFETY MEASURES ARE IN PLACE: BED IS LOCKED AND IN LOWEST POSITION. SIDE RAILS UP x2, BED SIDE TABLE AND CALL LIGHT ARE WITHIN REACH. WILL CONTINUE TO MONITOR
[2021-09-12] MEDS: PANTOPRAZOLE 40 MG TABLET.DR PO SCH (08:00)
[2021-09-12] MEDS: CLOTRIMAZOLE/BETAMETASONE DIPROPIONATE 15 GM TUBE TP SCH ×2 (08:04→16:00)
[2021-09-12] MEDS: ENOXAPARIN SODIUM 40 MG/0.4 ML DISP.SYRIN SQ SCH (08:04)
[2021-09-12 08:16] VITALS: BP 138/91
[2021-09-12] MEDS ORDERED: MAGNESIUM OXIDE 400 MG TABLET PO ONE (10:00)
[2021-09-12] MEDS: FOLIC ACID 1 MG TABLET PO SCH (10:14)
[2021-09-12] MEDS: THIAMINE HCL 100 MG TABLET PO SCH (12:08)
[2021-09-12 16:35] VITALS: BP 142/87
--- NOTE | 2021-09-12 19:50 | NUR ---
MSRN FULLY AWAKE, WANTED TO USE RESTROOM, REFUSED TO BE ASSISTED. BRP WITH STANDBY. HFR. COOPERATIVE MOST OF THE TIME. NO OTHER NEEDS MADE. SAFETY PRECAUTIONS EMPHASIZED, APPEARS TO UNDERSTAND. REMINDED TO CALL STAFF FOR ANY ASSISTANCE OR DISCOMFORTS. CLOSELY WATCHED,
[2021-09-12 20:48] VITALS: BP 135/74
--- NOTE | 2021-09-13 00:37 | NUR ---
MSRN ASLEEP, CLOSELY WATCHED.
--- NOTE | 2021-09-13 06:25 | NUR ---
MSRN REMAINS STABLE. NO NEEDS FOR NOW.
[2021-09-13 06:38] LABS: BASOPHILS # (AUTO) 0.2 K/uL (0.0-0.2); BASOPHILS % (AUTO) 2.5 % (0.0-2.0); EOSINOPHILS % (AUTO) 1.6 % (0.0-6.0); HEMATOCRIT 39 % (39-51); HEMOGLOBIN 13.2 g/dL (13.5-17.5); LYMPHOCYTES # (AUTO) 1.5 K/uL (0.8-4.8); LYMPHOCYTES % (AUTO) 17.9 % (20.0-44.0); MEAN CORPUSCULAR HGB CONC 34 g/dl (31.0-36.0); MEAN CORPUSCULAR VOLUME 98 fL (80-96); MONOCYTES % (AUTO) 11.5 % (2.0-12.0); NEUTROPHILS # (AUTO) 5.7 K/uL (1.8-8.9); NEUTROPHILS % (AUTO) 66.5 % (43.0-81.0); PLATELET COUNT (AUTO) 754 K/uL (150-450); RED BLOOD CELL COUNT(AUTO) 4.01 MIL/uL (4.5-6.0); WHITE BLOOD COUNT (AUTO) 8.6 K/uL (4.3-11.0)
[2021-09-13 07:02] LABS: CALCIUM, SERUM 7.8 mg/dL (8.5-10.1); MAGNESIUM 1.8 mg/dL (1.8-2.4); POTASSIUM 3.4 mmol/L (3.5-5.1)
--- NOTE | 2021-09-13 07:30 | NUR ---
RN MS NOTES PT IN BED, AWAKE, ALERT AND ORIENTED, DENIES PAIN, BREATHING PATTERN NORMAL, CALL LIGHT WITHIN REACH, KEPT COMFORTABLE.
[2021-09-13 08:00] VITALS: BP 142/93
[2021-09-13] MEDS: FOLIC ACID 1 MG TABLET PO SCH (10:37)
[2021-09-13] MEDS: PANTOPRAZOLE 40 MG TABLET.DR PO SCH (10:37)
[2021-09-13] MEDS: ENOXAPARIN SODIUM 40 MG/0.4 ML DISP.SYRIN SQ SCH (10:38)
[2021-09-13] MEDS: CLOTRIMAZOLE/BETAMETASONE DIPROPIONATE 15 GM TUBE TP SCH ×2 (12:26→17:00)
[2021-09-13] MEDS ORDERED: POTASSIUM CHLORIDE 20 MEQ POWDER PACKET PO SCH (13:00)
[2021-09-13] MEDS: THIAMINE HCL 100 MG TABLET PO SCH (13:17)
[2021-09-13 16:00] VITALS: BP 138/85
--- NOTE | 2021-09-13 18:15 | NUR ---
RN MS NOTES PT AWAKE, ALERT AND ORIENTED, AMBULATES IN HIS ROOM WITH STEADY AND SLOW GAIT, SEEN BY DR. JACKSON TODAY, DISCHARGE ORDER GIVEN, DISCHARGE AND MEDICATION INSTRUCTIONS PROVIDED TO PT, VERBALIZED UNDERSTANDING, BELONGINGS ACCOUNTED FOR, PT REFUSED WOUND TREATMNENT AND WOUND PHOTOS, CALLED [facility], SPOKE WITH REYNA, INFORMED THAT PT IS BEING ADMITTED AT THEIR FACILITY, PICKED UP BY 2 AMBULANCE PERSONNEL. LEFT VIA GUERNEY IN STABLE CONDITION.
== END 2021-09-13 18:20 | DRG 775 ==
LOC: ER 17:32 → TRANSITION 09-03 12:07 → TELE 09-03 18:57 → MED 09-03 20:03
PROVIDERS: ADMIT Nurse Practitioner Acute Care; ATTEND Nurse Practitioner Family
DX: F10.239 Alcohol dependence with withdrawal, unspecified (principal); K85.90 Acute pancreatitis without necrosis or infection, unspecified; G93.89 Other specified disorders of brain; E83.39 Other disorders of phosphorus metabolism; L89.159 Pressure ulcer of sacral region, unspecified stage; E88.09 Other disorders of plasma-protein metabolism, not elsewhere classified; K76.0 Fatty (change of) liver, not elsewhere classified; E86.1 Hypovolemia; E87.1 Hypo-osmolality and hyponatremia; K52.9 Noninfective gastroenteritis and colitis, unspecified; G62.1 Alcoholic polyneuropathy; E87.6 Hypokalemia; Z20.822 Contact with and (suspected) exposure to COVID-19; Y90.9 Presence of alcohol in blood, level not specified; Z59.02 Unsheltered homelessness; F17.200 Nicotine dependence, unspecified, uncomplicated; R79.89 Other specified abnormal findings of blood chemistry; K82.8 Other specified diseases of gallbladder; Z91.81 History of falling; S80.12XA Contusion of left lower leg, initial encounter; S80.11XA Contusion of right lower leg, initial encounter; Y92.9 Unspecified place or not applicable; W19.XXXA Unspecified fall, initial encounter; R27.0 Ataxia, unspecified; Z98.890 Other specified postprocedural states; L30.8 Other specified dermatitis; E83.42 Hypomagnesemia
CPT/HCPCS: 36415; 70450-TC; 71045-TC; 76705-TC; 80048-TC; 80053-TC; 82962-TC; 83690-TC; 83735-TC; 84100-TC; 85025-TC; 87045-TC; 87081-TC; 97112-TC; 97530-TC; C9113; G0378; J1170; J1650; J2060; J2405; J3370; J3411; J3480; J7030; J7050; J7060; J7120